=== PATIENT | male | born 2000 | race Caucasian/White ===

== ENCOUNTER 2023-06-17 18:52 | Emergency (ER) | payer BC | END 2023-06-17 19:55 | disposition home or self-care (01) | LOC: JP.ED 18:52 | DX: S63.275A Dislocation of unspecified interphalangeal joint of left ring finger, initial encounter (principal); Z86.16 Personal history of COVID-19; W22.8XXA Striking against or struck by other objects, initial encounter; Y93.55 Activity, bike riding | CPT/HCPCS: 26770; 73140-26-F3; 73140-F3; 99283-25 ==